=== PATIENT | female | born 1955 | race Caucasian/White ===

== ENCOUNTER 2024-09-21 06:30 | Day surgery (SDC) | payer MEDICARE, BC ==
[~2024-09-21 06:30] MED LIST: EPINEPHrine 1 MG/ML SDV ONE; Sodium Chloride 0.9% 10 ML Syringe FLUSH PRN; Sodium Chloride 0.9% 10 ML Syringe FLUSH SCH
[2024-09-21] MEDS: Lactated Ringers 1,000 ML IV SCH (06:45)
[2024-09-21] MEDS ORDERED: fentaNYL 250 MCG/5 ML SDV ONE (07:31)
[2024-09-21] MEDS ORDERED: Propofol 200 MG/20 ML SDV ONE ×3 (07:31→08:59)
[2024-09-21] MEDS ORDERED: dexmedeTOMIDine HCl 200 MCG/2 ML SDV ONE (07:32)
[2024-09-21] MEDS ORDERED: ceFAZolin 2 GM Vial ONE (08:28)
[2024-09-21] MEDS ORDERED: Dexamethasone 4 MG/ML 5 ML MDV ONE (08:34)
[2024-09-21] MEDS ORDERED: Lidocaine 1% 5 ML VIAL ONE (08:34)
[2024-09-21] MEDS ORDERED: Ondansetron 4 MG/2 ML SDV ONE (08:34)
[2024-09-21] MEDS ORDERED: ePHEDrine 50 MG/ML SDV ONE (08:45)
[2024-09-21] MEDS ORDERED: Ketorolac 15 MG/ML SDV ONE (09:09)
[2024-09-21] MEDS: Bupivacaine 0.25% 10 ML SDV ONE (09:17)
[2024-09-21] MEDS ORDERED: HYDROmorphone 0.5 MG/0.5 ML Syringe IVPUSH PRN (09:43)
[2024-09-21] MEDS ORDERED: fentaNYL 100 MCG/2 ML SDV IVPUSH PRN (09:43)
[2024-09-21] MEDS: Acetaminophen/HYDROcodone 325-5 MG Tab PO PRN (11:11)
== END 2024-09-21 12:35 | disposition home or self-care (01) ==
LOC: JD.SDS 06:30
PROVIDERS: ATTEND Orthopaedic Surgery
DX: S83.241A Other tear of medial meniscus, current injury, right knee, initial encounter (principal); M94.261 Chondromalacia, right knee; E78.5 Hyperlipidemia, unspecified; Z86.16 Personal history of COVID-19; Z79.82 Long term (current) use of aspirin; Z87.891 Personal history of nicotine dependence; Z79.899 Other long term (current) drug therapy
CPT/HCPCS: A9270-GY; J0171; J0665; J0690; J1100; J1885; J2003; J2405; J2704; J3010; J3490; J7120